=== PATIENT | female | born 1995 | race Caucasian/White ===

== ENCOUNTER 2018-01-08 18:39 | Emergency (ER) | payer MEDICAID ==
[~2018-01-08] VITALS: Ht 160 cm; Wt 67.6 kg
[2018-01-08 18:46] VITALS: BP 126/89; Ht 160 cm; Wt 67.6 kg
== END 2018-01-08 19:11 | disposition home or self-care (01) ==
LOC: ED 18:39
DX: S00.83XA Contusion of other part of head, initial encounter (principal); S50.811A Abrasion of right forearm, initial encounter; Y04.8XXA Assault by other bodily force, initial encounter; Y93.89 Activity, other specified; Y92.89 Other specified places as the place of occurrence of the external cause; Y99.8 Other external cause status